=== PATIENT | female | born 2000 | race Caucasian/White ===

== ENCOUNTER 2025-03-13 06:26 | Day surgery (SDC) | payer OTHER, SELFPAY | END 2025-03-13 08:59 | disposition home or self-care (01) | LOC: GI 06:26 | PROVIDERS: ATTENDING PHYSICIAN Internal Medicine Gastroenterology | DX: K52.9 Noninfective gastroenteritis and colitis, unspecified (principal); K63.89 Other specified diseases of intestine; D12.3 Benign neoplasm of transverse colon | CPT/HCPCS: 45385; 45380; 88305 ==